=== PATIENT | male | born 1960 | race Caucasian/White ===

== ENCOUNTER 2018-10-28 07:48 | Day surgery (SDC) | payer BC ==
[2018-10-24 17:18] VITALS: BMI 38.0
[2018-10-28 09:01] LABS: #Eosinphils 0.2 thou/uL (0.0-0.7); #Lymphocytes 1.6 thou/uL (1.20-3.40); #Monocytes 0.6 thou/uL (0.11-0.59); #Neutrophils 3.3 thou/uL (1.40-6.50); %Basophils 0.1 % (0.0-1.0); %Eosinophils 3.7 % (0.0-10.0); %Lymphocytes 27.7 % (21.0-51.0); %Monocytes 9.7 % (0.0-10.0); %Neutrophils 58.8 % (42.0-75.0); Hemoglobin 14.1 g/dL (14.0-18.0); Mean Corpuscular HGB CONC 32.1 g/dL (32.0-36.0); Mean Corpuscular Volume 93.6 fL (78.0-98.0); Mean Platelet Volume 5.8 fL (7.4-10.4); Platelet Count 243 thou/uL (130-400); Red Blood Cell (RBC) Count 4.71 mill/uL (4.70-6.10); White Blood Cell (WBC) Count 5.7 thou/uL (4.8-10.8)
[2018-10-28] MEDS ORDERED: Levofloxacin 500 mg/D5W 100 ml Premix Bag ONE (09:01)
[2018-10-28] MEDS ORDERED: Clindamycin/D5W 900 mg/50 ml Premix Bag ONE (09:01)
[2018-10-28 09:24] LABS: Anion Gap 12 mmol/L (10-20); BUN (Urea Nitrogen) 19 mg/dL (8.4-25.7); Calc. Creatinine Clearance 181 mL/min (70-130); Calcium 9.7 mg/dL (7.8-10.44); Carbon Dioxide 23 mmol/L (22-29); Chloride 105 mmol/L (98-107); Estimated GFR-MDRD Greater than 90; Glucose 115 mg/dL (70-105); Potassium 4.1 mmol/L (3.5-5.1); Sodium 136 mmol/L (136-145)
[2018-10-28] MEDS ORDERED: Fentanyl 100 MCG/2 ML VIAL ONE (10:47)
[2018-10-28] MEDS ORDERED: PROPOFOL 200 MG/20 ML VIAL ONE (11:45)
[2018-10-28] MEDS ORDERED: Lidocaine 1% PF 5 ML VIAL ONE (11:45)
[2018-10-28] MEDS ORDERED: Rocuronium Bromide 10 MG/ML (10ML VIAL) ONE (11:45)
[2018-10-28] MEDS ORDERED: Glycopyrrolate 0.2 MG/ML 5 ML SYRINGE ONE (11:45)
[2018-10-28] MEDS ORDERED: Ondansetron PF 4 MG/2 ML Vial ONE (11:45)
[2018-10-28] MEDS ORDERED: Morphine 2 MG/ML SYRINGE ONE (13:10)
[2018-10-28] MEDS ORDERED: HYDROcodone/Acetaminophen 5/325 mg Tablet ONE (13:37)
--- NOTE | 2018-10-28 16:23 | OP ---
DATE OF PROCEDURE: 10/28/2018 GIS SOFTWARE ENGINEER: Patrick Lucero PA-C PROCEDURES PERFORMED: Right L2-L3 microdiskectomy. DESCRIPTION OF PROCEDURE: The patient was brought to the operating room and intubated. He was rolled in a prone position on gel-filled chest rolls. An incision was made exposing right L2 and right L3, and the level was confirmed by x-ray. Exposure was quite difficult given his very large body habitus. We performed a right L2-L3 hemilaminectomy and found the right inferior L2 facet to be somewhat loose. After exposure was achieved, we identified the right L3 nerve root and L3 pedicle and beneath this, did find disc extrusion which was partially calcified. This was debrided multiple fragments and a complete decompression of the neural elements was achieved, although again some of the elements disc seemed to be calcific. The wound was extensively irrigated. MAC hemostasis was secured. Vancomycin powder was applied and the wound was then closed in anatomic layers. Job ID: [id number]
--- NOTE | 2018-10-29 22:52 | EKG ---
Test Reason : PREOP Blood Pressure : / mmHG Vent. Rate : 061 BPM Atrial Rate : 061 BPM P-R Int : 160 ms QRS Dur : 110 ms QT Int : 422 ms P-R-T Axes : 051 026 047 degrees QTc Int : 424 ms Normal sinus rhythm Normal ECG No previous ECGs available Confirmed by KATIE STOLL ([id number]) on 10/29/2018 10:51:59 PM Referred By: JEROME Confirmed By:KATIE STOLL
== END 2018-10-28 14:50 | disposition home or self-care (01) ==
LOC: SDC 07:48
PROVIDERS: ATTEND Neurological Surgery
PROC: 00BY0ZZ Excision of Lumbar Spinal Cord, Open Approach (ICD-10-PCS; principal; 2018-10-28)
DX: M48.062 Spinal stenosis, lumbar region with neurogenic claudication (principal); I10 Essential (primary) hypertension; E11.9 Type 2 diabetes mellitus without complications; E78.5 Hyperlipidemia, unspecified; Z79.84 Long term (current) use of oral hypoglycemic drugs; Z88.0 Allergy status to penicillin
CPT/HCPCS: 36415; 76000; 80048; 85025; 93005; 93010; J1956; J2001; J2270; J2405; J2704; J3010; J3370; J3490

== ENCOUNTER 2024-01-17 10:29 | Day surgery (SDC) | payer MEDICARE ==
[2024-01-16 09:57] VITALS: BMI 34.2
[2024-01-17] MEDS ORDERED: Oxymetazoline HCl 0.05% (30 ML BOT) ONE ×2 (10:47→12:26)
[2024-01-17 11:10] LABS: Hematocrit 38.5 % (42.0-52.0); Hemoglobin 13.2 g/dL (14.0-18.0)
[2024-01-17 11:33] LABS: Anion Gap 10 mmol/L (10-20); BUN (Urea Nitrogen) 14 mg/dL (8.4-25.7); Calc. Creatinine Clearance 165 mL/min (70-130); Calcium 8.9 mg/dL (7.8-10.44); Carbon Dioxide 25 mmol/L (23-31); Chloride 109 mmol/L (98-107); Estimated GFR 101; Glucose 117 mg/dL (80-115); Potassium 4.2 mmol/L (3.5-5.1); Sodium 140 mmol/L (136-145)
[2024-01-17] MEDS ORDERED: Lidocaine 1% PF 5 ML VIAL ONE (12:09)
[2024-01-17] MEDS ORDERED: PROPOFOL 40 ML ONE (12:09)
[2024-01-17] MEDS ORDERED: Dexamethasone 20 MG/5 ML VIAL ONE (12:09)
[2024-01-17] MEDS ORDERED: Ondansetron PF 4 MG/2 ML Vial ONE (12:09)
[2024-01-17] MEDS ORDERED: fentaNYL PF 100 MCG/2 ML SYRINGE ONE (12:09)
[2024-01-17] MEDS ORDERED: EPINEPHrine 1 MG/ML VIAL ONE (12:26)
[2024-01-17] MEDS ORDERED: Lidocaine 1% (PF) 30 ML VIAL ONE (12:26)
[2024-01-17] MEDS ORDERED: PHENYLEPHRINE-NS 100 MCG/ML 10 ML SYRINGE ONE (13:19)
[2024-01-17] MEDS ORDERED: fentaNYL 50 mcg/mL 1 mL Vial ONE (13:22)
== END 2024-01-17 15:45 | disposition home or self-care (01) ==
LOC: SDC 10:29
PROVIDERS: ATTEND Specialist
PROC: 09TV8ZZ Resection of Left Ethmoid Sinus, Via Natural or Artificial Opening Endoscopic (ICD-10-PCS; principal; 2024-01-17)
PROC: 09TX8ZZ Resection of Left Sphenoid Sinus, Via Natural or Artificial Opening Endoscopic (ICD-10-PCS; 2024-01-17)
PROC: 09TQ8ZZ Resection of Right Maxillary Sinus, Via Natural or Artificial Opening Endoscopic (ICD-10-PCS; 2024-01-17)
PROC: 09TR8ZZ Resection of Left Maxillary Sinus, Via Natural or Artificial Opening Endoscopic (ICD-10-PCS; 2024-01-17)
PROC: 09TS8ZZ Resection of Right Frontal Sinus, Via Natural or Artificial Opening Endoscopic (ICD-10-PCS; 2024-01-17)
PROC: 09TT8ZZ Resection of Left Frontal Sinus, Via Natural or Artificial Opening Endoscopic (ICD-10-PCS; 2024-01-17)
PROC: 09TU8ZZ Resection of Right Ethmoid Sinus, Via Natural or Artificial Opening Endoscopic (ICD-10-PCS; 2024-01-17)
PROC: 09TL8ZZ Resection of Nasal Turbinate, Via Natural or Artificial Opening Endoscopic (ICD-10-PCS; 2024-01-17)
DX: J34.3 Hypertrophy of nasal turbinates (principal); J32.8 Other chronic sinusitis; H91.93 Unspecified hearing loss, bilateral; J01.90 Acute sinusitis, unspecified; E78.5 Hyperlipidemia, unspecified; I10 Essential (primary) hypertension; E11.9 Type 2 diabetes mellitus without complications; Z88.0 Allergy status to penicillin; Z79.899 Other long term (current) drug therapy; Z79.84 Long term (current) use of oral hypoglycemic drugs
CPT/HCPCS: 30140; 31253; 31267; 61782; 80048; 85014; 85018; 93005; J0171; J1100; J2001; J2405; J2704; J3010; 93010